=== PATIENT | male | born 1995 | race Caucasian/White ===

== ENCOUNTER 2017-09-30 22:48 | Emergency (ER) | payer OTHER ==
[2017-09-30 23:07] VITALS: BP 126/73; PULSE 90; TEMP 97.8; BMI 22.8
[2017-09-30] MEDS ORDERED: SULFAMETHOXAZOLE/TRIMETHOPRIM 800MG/160MG D.S. TABLET PO ONE (23:57)
[2017-10-01] MEDS ORDERED: SULFAMETHOXAZOLE/TRIMETHOPRIM 800MG/160MG D.S. TABLET ONE (00:24)
--- NOTE | 2017-10-01 00:35 | PDOC ---
History of Present Illness - General Chief Complaint: Abscess Boil Stated Complaint: PAIN Time Seen by Provider: 09/30/17 23:23 History Source: Patient Exam Limitations: No Limitations - History of Present Illness Initial Comments: 10/01/17 00:29 22m with no pmh present to the ED for abcess to the right forearm since Tuesday. Put Vicks on it, abcess became a boil and was eventually pierced. A lot of pus came out, especially yesterday.. Today theres a red, painful area on his arm. 10/01/17 00:32 Denies fever, chills. Past History - Past Medical History Allergies/Adverse Reactions: Allergies Allergy/AdvReac Type Severity Reaction Status Date / Time No Known Allergies Allergy Verified 11/27/15 14:30 Home Medications: Ambulatory Orders Neomycin/Polymyxn/Hc [Cortisporin Otic Suspenstion -] 5 drop AU Q4HWA #1 drops 11/27/15 Sulfamethoxazole/Trimethoprim [Bactrim Ds -] 1 tab PO BID #14 tablet 09/30/17 - Surgical History Abdominal Surgery: No Appendectomy: No Cardiac Surgery: No Cholecystectomy: No Gastric Stapling: No GI Surgery: No Lung Surgery: No Neurologic Surgery: Yes (back) Orthopedic Surgery: No - Immunization History Immunization Up to Date: Yes - Suicide/Smoking/Psychosocial Hx Smoking Status: No Smoking History: Never smoked Have you smoked in the past 12 months: No Number of Cigarettes Smoked Daily: 2 Information on smoking cessation initiated: No Hx Alcohol Use: No Drug/Substance Use Hx: No Review of Systems - Review of Systems Able to Perform ROS?: Yes Is the patient limited Slovenian proficient: No Constitutional: No: Symptoms Reported HEENTM: No: Symptoms Reported Respiratory: No: Symptoms reported Cardiac (ROS): No: Symptoms Reported ABD/GI: No: Symptoms Reported : No: Symptoms Reported Musculoskeletal: No: Symptoms Reported Integumentary: Yes: See HPI Neurological: No: Symptoms reported All Other Systems: Reviewed and Negative *Physical Exam - Vital Signs Last Vital Signs Temp Pulse Resp BP Pulse Ox 97.8 F 90 18 126/73 100 09/30/17 23:02 09/30/17 23:02 09/30/17 23:02 09/30/17 23:02 09/30/17 23:02 - Physical Exam General Appearance: Yes: Nourished, Appropriately Dressed. No: Apparent Distress HEENT: positive: EOMI, ALIZE, Normal ENT Inspection Respiratory/Chest: positive: Lungs Clear, Normal Breath Sounds. negative: Chest Tender, Respiratory Distress Cardiovascular: positive: Regular Rhythm, Regular Rate, S1, S2 Gastrointestinal/Abdominal: positive: Normal Bowel Sounds, Flat, Soft. negative : Tender Musculoskeletal: positive: Normal Inspection. negative: CVA Tenderness Extremity: positive: Normal Capillary Refill, Normal Inspection, Normal Range of Motion Integumentary: positive: Normal Color, Dry, Warm Neurologic: positive: Fully Oriented, Alert, Normal Mood/Affect, Normal Response , Motor Strength 07/30 ED Treatment Course - Medications Given in the ED: ED Medications Discontinued Medications Generic Name Dose Route Start Last Admin Trade Name Freq PRN Reason Stop Dose Admin Trimethoprim/Sulfamethoxazole 1 each 09/30/17 23:57 10/01/17 00:25 Bactrim Ds - PO 09/30/17 23:58 1 each ONCE ONE Administration Medical Decision Making - Medical Decision Making 10/01/17 00:36 22m with r forearm abscess. Bedside ultrasound. No drainable abscess to be seen, Will discharge with antibiotics. 10/01/17 00:39 *DC/Admit/Observation/Transfer Diagnosis at time of Disposition: Abscess of forearm, right - Discharge Dispostion Disposition: HOME Condition at time of disposition: Good Decision to Admit order: No - Prescriptions Prescriptions: Sulfamethoxazole/Trimethoprim [Bactrim Ds -] 1 tab PO BID #14 tablet - Referrals - Patient Instructions Printed Discharge Instructions: DI for Skin Abscess Additional Instructions: Follow up with your primary care provider within 3 days or if symptoms do not get better. Come back to the ER for any new, worsening or concerning symptoms like drainage , fever, chills . - Post Discharge Activity
--- NOTE | 2017-10-01 01:39 | PDOC ---
Attending Attestation - HPI HPI: 10/01/17 01:40 The patient is a 22 year old male with no significant past medical history who presents to the emergency department for evaluation of right forearm abscess since Tuesday. The patient reports moderate right forearm pain with associated redness secondary to abscess. He reports putting vicks on the abscess which eventually pierced. Pt reports moderate amount of pus exiting abscess. The patient denies chest pain, shortness of breath, headache, fever, or chills. Allergies: NKDA Social History: No reported alcohol, cigarette, or drug use. - Physicial Exam PE: GENERAL: Awake, alert, and fully oriented, in no acute distress HEAD: No signs of trauma EYES: PERRLA, EOMI, sclera anicteric, conjunctiva clear ENT: Auricles normal inspection, hearing grossly normal, nares patent, oropharynx clear without exudates. Moist mucosa NECK: Normal ROM, supple. LUNGS: Breath sounds equal, clear to auscultation bilaterally. No wheezes, and no crackles HEART: Regular rate and rhythm, normal S1 and S2, no murmurs, rubs or gallops ABDOMEN: Soft, nontender, normoactive bowel sounds. No guarding, no rebound. No masses EXTREMITIES: (+)right forearm: distal to elbow, medial aspect of proximal forearm, no abscess, no fluctuance, no redness, no warmth. Slightly thickened skin with mild surrounding tenderness. No pain with pronation or supination. No pain with flexion or extension of elbow. NEUROLOGICAL: Cranial nerves II through XII grossly intact. SKIN: Warm, Dry, normal turgor, no rashes or lesions noted. <Talita Pedro - Last Filed: 10/01/17 01:40> - Resident Resident Name: Abdias Cortés - ED Attending Attestation I have performed the following: I have examined & evaluated the patient, The case was reviewed & discussed with the resident, I agree w/resident's findings & plan - Medical Decision Making 10/01/17 19:40 Pus leaked out of the wound. Now with no fluctance; sligt surrounding sensitivity and slightly indurated skin. Pt will be given a course of bactrim. He understands to return if the abscess or fluctuance, redness, warmth or selling or fever returns. <Lorena Vences - Last Filed: 10/01/17 19:41> Attestations - Attestations Documentation prepared by Talita Pedro, acting as medical pathologist for Lorena Vences MD. <Talita Pedro - Last Filed: 10/01/17 01:40>
== END 2017-10-01 00:46 | disposition home or self-care (01) ==
LOC: JER 22:48
DX: L02.413 Cutaneous abscess of right upper limb (principal)
CPT/HCPCS: 99281-25

== ENCOUNTER 2017-12-12 21:18 | Emergency (ER) | payer OTHER ==
[2017-12-12 21:33] VITALS: BP 129/78; PULSE 80; TEMP 99.1; BMI 22.1
--- NOTE | 2017-12-12 22:04 | PDOC ---
History of Present Illness - General Chief Complaint: Ear Problem Stated Complaint: RIGHT EAR PAIN Time Seen by Provider: 12/12/17 21:57 - History of Present Illness Initial Comments: -year-old male without comorbidities presents for evaluation of right ear pain times one month with drainage over the last 2 days. He describes his drainage is yellow 12/12/17 22:01 Past History - Past Medical History Allergies/Adverse Reactions: Allergies Allergy/AdvReac Type Severity Reaction Status Date / Time No Known Allergies Allergy Verified 12/12/17 21:32 Home Medications: Ambulatory Orders Ciprofloxacin HCl/Dexameth [Ciprodex Otic Suspension] 4 drop AD BID #1 bottle COPD: No - Surgical History Abdominal Surgery: No Appendectomy: No Cardiac Surgery: No Cholecystectomy: No Gastric Stapling: No GI Surgery: No Lung Surgery: No Neurologic Surgery: Yes (back) Orthopedic Surgery: No - Immunization History Immunization Up to Date: Yes - Suicide/Smoking/Psychosocial Hx Smoking Status: No Smoking History: Never smoked Have you smoked in the past 12 months: No Number of Cigarettes Smoked Daily: 2 Information on smoking cessation initiated: No Hx Alcohol Use: No Drug/Substance Use Hx: No Substance Use Type: None Review of Systems - Review of Systems HEENTM: Yes: See HPI, Ear Pain All Other Systems: Reviewed and Negative *Physical Exam - Vital Signs Last Vital Signs Temp Pulse Resp BP Pulse Ox 99.1 F 80 18 129/78 100 12/12/17 21:30 12/12/17 21:30 12/12/17 21:30 12/12/17 21:30 12/12/17 21:30 - Physical Exam Comments: HEAD: NC/AT EYES: Conjuntiva clear Ears: Is mild erythema and yellowish exudate in the right ear canal the tympanic membrane is normal left ear canal and tympanic membrane are normal. NOSE: No d/c THROAT: Moist mucous membrances, oral pharanx clear, uvula midline NECK: Supple without adenopathy CARDIAC: S1 S2 LUNGS: CTA Full and Equal breath sounds ABDOMEN: Soft NT ND MS: Full ROM in all joints without edema NEUROLOGIC: No gross sensory or motor deficits, NVID SKIN: Normal color and temperature no lesions or rashes 12/12/17 22:02 *DC/Admit/Observation/Transfer Diagnosis at time of Disposition: Otitis externa - Discharge Dispostion Disposition: HOME Condition at time of disposition: Stable Decision to Admit order: No - Prescriptions Prescriptions: Ciprofloxacin HCl/Dexameth [Ciprodex Otic Suspension] 4 drop AD BID #1 bottle - Referrals Referrals: Bravo Hubbard MD [Staff Physician] - - Patient Instructions Printed Discharge Instructions: Otitis Externa, DI for Otitis Externa Additional Instructions: Return to the emergency room should symptoms worsen or go unresolved. Please follow-up with the ear nose and throat doctor in 2-3 days for further evaluation and treatment options. Take the medication as directed You must take the antibiotics drops for a total of 5 days - Post Discharge Activity
== END 2017-12-12 22:06 | disposition home or self-care (01) ==
LOC: JERFT 21:18
DX: H60.91 Unspecified otitis externa, right ear (principal)
CPT/HCPCS: 99281-25

== ENCOUNTER 2022-05-27 15:07 | Emergency (ER) | payer OTHER ==
[2022-05-27 15:40] VITALS: BP 129/66; PULSE 89; RESP 17; TEMP 98; BMI 20.9
[2022-05-27] MEDS ORDERED: METOCLOPRAMIDE HCL INJECTION 10 MG/2 ML VIAL IVPUSH ONE (16:01)
[2022-05-27] MEDS ORDERED: SODIUM CHLORIDE 1,000 ML IV STA (16:01)
[2022-05-27] MEDS ORDERED: KETOROLAC TROMETHAMINE 15 MG/ML VIAL IVPUSH ONE (16:01)
[2022-05-27] MEDS ORDERED: KETOROLAC TROMETHAMINE 15 MG/ML VIAL ONE (16:09)
[2022-05-27] MEDS ORDERED: METOCLOPRAMIDE HCL INJECTION 10 MG/2 ML VIAL ONE (16:16)
== END 2022-05-27 17:45 | disposition home or self-care (01) ==
LOC: JERFT 15:07
PROC: 3E033GC Introduction of Other Therapeutic Substance into Peripheral Vein, Percutaneous Approach (ICD-10-PCS; principal; 2022-05-27)
PROC: 3E0333Z Introduction of Anti-inflammatory into Peripheral Vein, Percutaneous Approach (ICD-10-PCS; 2022-05-27)
PROC: 3E033GC Introduction of Other Therapeutic Substance into Peripheral Vein, Percutaneous Approach (ICD-10-PCS; 2022-05-27)
PROC: 3E0337Z Introduction of Electrolytic and Water Balance Substance into Peripheral Vein, Percutaneous Approach (ICD-10-PCS; 2022-05-27)
DX: G44.009 Cluster headache syndrome, unspecified, not intractable (principal)
CPT/HCPCS: 99284-25